=== PATIENT | female | born 2000 | race Caucasian/White ===

== ENCOUNTER → 2020-02-16 | Outpatient (REF) | payer OTHER ==
[2020-02-16 14:07] LABS: BASO % 0.4 % (0.0-1.0); EOS # 0.2 10^3/uL (0.0-0.5); EOS % 1.6 % (0.0-3.0); HEMATOCRIT 47.2 % (36.0-47.0); HEMOGLOBIN 15.4 g/dl (12.0-15.5); LYMPH # 1.9 10^3/uL (1.5-5.0); LYMPH % 17.2 % (24.0-44.0); MEAN CORPUSCULAR HEMOGLOBIN 29.5 pg (27.0-33.0); MEAN CORPUSCULAR HGB CONC 32.6 g/dl (32.0-36.5); MEAN CORPUSCULAR VOLUME 90.4 fl (80.0-96.0); MONO # 0.6 10^3/uL (0.0-0.8); MONO % 5.4 % (0.0-5.0); NEUTROPHILS # 8.1 10^3/uL (1.5-8.5); PLATELET COUNT, AUTOMATED 352 10^3/uL (150-450); RED BLOOD COUNT 5.22 10^6/uL (4.00-5.40); WHITE BLOOD COUNT 10.7 10^3/uL (4.0-10.0)
[2020-02-16 14:18] LABS: BLOOD UREA NITROGEN 13 MG/DL (7-18); CALCIUM LEVEL 9.5 MG/DL (8.5-10.1); CARBON DIOXIDE LEVEL 28 MEQ/L (21-32); CHLORIDE LEVEL 105 MEQ/L (98-107); CREATININE FOR GFR 0.68 MG/DL (0.55-1.30); GLOMERULAR FILTRATION RATE > 60.0 (>60); GLUCOSE, FASTING 84 MG/DL (70-100); POTASSIUM SERUM 4.3 MEQ/L (3.5-5.1); SODIUM LEVEL 138 MEQ/L (136-145)
== END ==
LOC: M SFHCPLAZ 09:20
PROVIDERS: ATTEND Family Medicine
DX: R42 Dizziness and giddiness (principal)

== ENCOUNTER 2020-03-20 10:44 | Emergency (ER) | payer OTHER ==
[~2020-03-20] VITALS: Ht 152.4 cm; Wt 48.3 kg
[2020-03-20 10:45] VITALS: BP 122/79
[2020-03-20] MEDS ORDERED: SETL1TAB PO (10:53)
[2020-03-20] MEDS ORDERED: CYCL-707 PO ×2 (11:27→11:31)
[2020-03-20] MEDS ORDERED: VENTAER INH (11:27)
--- OUTSIDE RECORDS SUMMARY | 2020-03-20 11:35 | CCD ---
Author Author [facility] Organization [facility] Address Unknown Phone Unavailable Support Name Relationship Address Phone EDUARDO [place] [address] ELINA SNOW Next Of Kin [address] [place], [place] [phone] ELINA GONSALEZ Next Of [address] [place] [address] Re-disclosure Warning The records that you are about to access may contain information from federally-assisted alcohol or drug abuse programs. If such information is present, then the following federally mandated warning applies: This information has been disclosed to you from records protected by federal confidentiality rules (42 CFR part 2). The federal rules prohibit you from making any further disclosure of this information unless further disclosure is expressly permitted by the written consent of the person to whom it pertains or as otherwise permitted by 42 CFR part 2. A general authorization for the release of medical or other information is NOT sufficient for this purpose. The Federal rules restrict any use of the information to criminally investigate or prosecute any alcohol or drug abuse patient.The records that you are about to access may contain highly sensitive health information, the redisclosure of which is protected by Article 27-F of the [facility] Public Health law. If you continue you may have access to information: Regarding HIV / AIDS; Provided by facilities licensed or operated by the [facility] Office of Mental Health; or Provided by the [facility] Office for People With Developmental Disabilities. If such information is present, then the following [facility] mandated warning applies: This information has been disclosed to you from confidential records which are protected by state law. State law prohibits you from making any further disclosure of this information without the specific written consent of the person to whom it pertains, or as otherwise permitted by law. Any unauthorized further disclosure in violation of state law may result in a fine or detention sentence or both. A general authorization for the release of medical or other information is NOT sufficient authorization for further disc losure. Insurance Providers Payer name Policy type / Coverage type Policy ID Covered republican ID Covered republican's relationship to parkinson Policy Parkinson Plan Information CHANELLE [id number]
[2020-03-20 12:30] LABS: RSV AMPLIFICATION NEGATIVE (NEGATIVE)
[2020-03-21] MEDS ORDERED: CYCL-707 PO (15:23)
[2020-03-21] MEDS ORDERED: VENTAER INH (15:23)
== END 2020-03-20 11:52 | disposition home or self-care (01) ==
LOC: M ED 10:44
DX: M62.830 Muscle spasm of back (principal); Z20.828 Contact with and (suspected) exposure to other viral communicable diseases; R06.02 Shortness of breath; R50.9 Fever, unspecified; R05 Cough; R51.9 Headache, unspecified; F17.290 Nicotine dependence, other tobacco product, uncomplicated; F43.22 Adjustment disorder with anxiety; F33.9 Major depressive disorder, recurrent, unspecified; Z79.51 Long term (current) use of inhaled steroids; Z79.899 Other long term (current) drug therapy

== ENCOUNTER 2020-03-21 10:23 | Inpatient (IN) | payer OTHER ==
[~2020-03-21] VITALS: Ht 149.9 cm; Wt 49.5 kg
[~2020-03-21 10:23] MED LIST: CYCL-707 PO; SETL1TAB PO; VENTAER INH
--- OUTSIDE RECORDS SUMMARY | 2020-03-21 10:28 | CCD ---
Author Author [facility] Organization [facility] Address Unknown Phone Unavailable Support Name Relationship Address Phone EDUARDO [place] [address] 000 ELINA SNOW Next Of Kin [address] [place], [place] [phone] ELINA GONSALEZ Next Of [address] [place] [address] Re-disclosure Warning The records that you are [...] is protected by Article 27-F of the [facility] Public Health law. If you continue you may have access to information: Regarding HIV / AIDS; Provided by facilities licensed or operated by the [facility] Office of Mental Health; or Provided by the [facility] Office for People With Developmental Disabilities. If such information is present, then the following [facility] mandated warning applies: This information has been [...] law may result in a fine or care home sentence or both. A general authorization for the release of medical or other information is NOT sufficient authorization for further disc losure. Insurance Providers Payer name Policy type / Coverage type Policy ID Covered republican ID Covered republican's relationship to parkinson Policy Parkinson Plan Information CHANELLE [id number] 500 Results ID Date Data Source [id number] 03/20/2020 11:36:00 AM EST [place] Name Value Range Interpretation Code Description Data Zoë rce(s) Supporting Document(s) SARS coronavirus 2 RNA [Presence] in Res piratory specimen by GILA with probe detection NEGATIVE [place] This lab was ordered by [facility] a nd reported by [facility]. Procedure
--- OUTSIDE RECORDS SUMMARY | 2020-03-21 10:57 | CCD ---
Author Author [facility] Organization [facility] Address Unknown Phone Unavailable Support Name Relationship Address Phone EDUARDO [place] [address] 000 ELINA SNOW Next Of Kin [address] [place], [place] [phone] ELINA GONSALEZ Next Of [address] [place] [address] Re-disclosure Warning The records that you are [...] is protected by Article 27-F of the [facility] Public Health law. If you continue you may have access to information: Regarding HIV / AIDS; Provided by facilities licensed or operated by the [facility] Office of Mental Health; or Provided by the [facility] Office for People With Developmental Disabilities. If such information is present, then the following [facility] mandated warning applies: This information has [...] law may result in a fine or senior living sentence or both. A general authorization for the release of medical or other information is NOT sufficient authorization for further disc losure. Insurance Providers Payer name Policy type / Coverage type Policy ID Covered green party ID Covered green party's relationship to parkinson Policy Parkinson Plan Information CHANELLE [id number] 500 Results ID Date Data Source [id number] 03/20/2020 11:36:00 AM EST [place] Name Value Range Interpretation Code Description Data Zoë rce(s) Supporting Document(s) SARS coronavirus 2 RNA [Presence] in Res piratory specimen by GILA with probe detection NEGATIVE [place] This lab was ordered by [facility] a nd reported by [facility]. Procedure
[2020-03-21] MEDS ORDERED: KETOROLAC 30 MG/ML 1ML VIAL IV ONE (12:00)
[2020-03-21] MEDS ORDERED: NS 1,000 ML IV ONE (12:00)
--- NOTE | 2020-03-21 12:11 | REP ---
INDICATION: CP, SOB, pleuritic CP. COMPARISON: No comparison study. TECHNIQUE: Portable upright AP chest radiograph. FINDINGS: There are increased markings in the bases bilaterally left more so than right consistent with bibasilar infiltrates. Heart is not enlarged. No bony abnormality is seen. Nipple jewelry is noted incidentally. IMPRESSION: Bibasilar infiltrates, left greater than right consistent with pneumonia.. <Electronically signed by Jerome Russell > 03/21/20 [id number]
[2020-03-21 12:36] LABS: BASO % 0.2 % (0.0-1.0); HEMATOCRIT 37.6 % (36.0-47.0); HEMOGLOBIN 12.7 g/dl (12.0-15.5); LYMPH # 0.9 10^3/uL (1.5-5.0); LYMPH % 3.9 % (24.0-44.0); MEAN CORPUSCULAR HEMOGLOBIN 29.5 pg (27.0-33.0); MEAN CORPUSCULAR HGB CONC 33.8 g/dl (32.0-36.5); MEAN CORPUSCULAR VOLUME 87.4 fl (80.0-96.0); MONO # 0.3 10^3/uL (0.0-0.8); MONO % 1.5 % (0.0-5.0); NEUTROPHILS # 20.6 10^3/uL (1.5-8.5); NEUTROPHILS % 93.4 % (36.0-66.0); PLATELET COUNT, AUTOMATED 340 10^3/uL (150-450)
[2020-03-21] MEDS ORDERED: LevoFLOXacin 750 MG TABLET PO ONE (13:00)
[2020-03-21] MEDS ORDERED: cefTRIAXone SOD 1 GM in D5W MINI-BAG PLUS 50 ML IV ONE ×2 (13:00→17:00)
[2020-03-21] MEDS ORDERED: NS IV ONE (13:00)
[2020-03-21 13:11] LABS: ALBUMIN 3.1 GM/DL (3.2-5.2); ALT/SGPT 19 U/L (12-78); BILIRUBIN,DIRECT 0.3 MG/DL (0.0-0.2); BLOOD UREA NITROGEN 5 MG/DL (7-18); CARBON DIOXIDE LEVEL 21 MEQ/L (21-32); CHLORIDE LEVEL 100 MEQ/L (98-107); CK-MB VALUE MASS < 1.0 NG/ML (<3.6); CPK CREATINE PHOSPHOKINASE 30 U/L (26-192); GLOMERULAR FILTRATION RATE > 60.0 (>60); GLUCOSE, FASTING 81 MG/DL (70-100); LIPASE 73 U/L (73-393); MB/CK RELATIVE INDEX 3.33 (< OR =4); POTASSIUM SERUM 3.5 MEQ/L (3.5-5.1); SODIUM LEVEL 132 MEQ/L (136-145); TOTAL PROTEIN 6.9 GM/DL (6.4-8.2); TROPONIN I < 0.02 NG/ML (< 0.10)
[2020-03-21] MEDS ORDERED: ISOVUE-370 76% 100ML VIAL As Ordered ONE (14:03)
--- NOTE | 2020-03-21 14:41 | REP ---
INDICATION: CP, SOB, pleuritic CP, elevated dimer, low back pain rad RLE. COMPARISON: Radiograph today. TECHNIQUE: CT angiogram chest performed following the intravenous administration of 100 cc of Isovue 370. Sagittal and coronal reconstruction images are performed. FINDINGS: Lungs: There are diffuse bilateral patchy infiltrates, more so inferiorly bilaterally. Mediastinum: No adenopathy. Pulmonary arteries: No evidence of pulmonary embolism. Maria Dolores: 3 mildly enlarged right hilar lymph nodes are present, the largest 1.4 cm in short axis dimension. A mildly enlarged left inferior hilar lymph node measures 1.3 cm in short axis. Axilla: No adenopathy. Pleura: No effusion. Heart: Not enlarged. Thoracic aorta: No aneurysm or dissection. . Visualized osseous structures: Unremarkable. IMPRESSION: No CT evidence of pulmonary embolism. Diffuse patchy bilateral infiltrates, more so inferiorly bilaterally. Mild bilateral hilar adenopathy. <Electronically signed by Mychal Chadwick > 03/21/20 0613
--- NOTE | 2020-03-21 14:46 | REP ---
INDICATION: cp, sob, pleuritic CP, low back pain radiating to RLE COMPARISON: None. TECHNIQUE: CT Scan of the abdomen and pelvis was performed with intravenous administration of 100 cc of Isovue 370, without oral contrast. FINDINGS: Liver: There is mild hepatomegaly, the length of the liver is approximately 18 cm. There is diffuse patchy low density throughout the liver suggesting diffuse fibrofatty infiltration. Gallbladder: Unremarkable. Spleen: Normal. Adrenals: Normal. Pancreas: Normal. Kidneys: Normal. Small and large bowel: Unremarkable. Free fluid: None. Abdominal aorta: No aneurysm or dissection. Adenopathy: None. Appendix: Not inflamed. Osseous structures: Unremarkable. Pelvis: No mass. IMPRESSION: No acute abnormalities. Mild hepatomegaly with diffuse fibrofatty infiltration. <Electronically signed by Mychal Chadwick > 03/21/20 3705
[2020-03-21] MEDS ORDERED: CYCL-707 PO (15:23)
[2020-03-21] MEDS ORDERED: VENTAER INH (15:23)
[2020-03-21] MEDS ORDERED: ALBUTEROL 90 MCG/ACT 8GM HFA INHALER INH PRN (16:00)
[2020-03-21] MEDS ORDERED: ACETAMINOPHEN TAB 650MG DOSE (2X325MG) PO PRN (16:00)
--- NOTE | 2020-03-21 16:09 | HPEPDOC ---
General Date of Admission Date of Service: Mar 21, 2020 Chief Complaint The patient is a 20-year-old female admitted with a reason for visit of Shortness Of Breath. Source: Patient Timing/Duration: Day(s) Severity: Moderate History of Present Illness Patient's 20 years old female with past history of anxiety, depression, adjustm ent disorder presented to the hospital with increased shortness of breath, fever and intermittent cough. Patient stated that she started coughing around 3 days ago, for past 2 days patient has been having fever around 101 associated with weakness and nonproductive cough. Patient stated that she was exposed to Covid 19 however 2 tests were negative. In ER patient was found to have fever of 100.8, tachycardia with heart rate 130 and leukocytosis of 22. CTA was done and showed No CT evidence of pulmonary embolism. Diffuse patchy bilateral infiltrates, more so inferiorly bilaterally. Mild bilateral hilar adenopathy Home Medications Scheduled Levonorgestrel-Ethin Estradiol (Setlakin 0.15 mg-0.03 mg Tab) 1 Each Tbdspk.3mo, 1 TAB PO DAILY, (Reported) Scheduled PRN Albuterol Sulfate (Ventolin Hfa) 18 Gm Hfa.aer.ad, 2 PUFFS INH QID PRN for SOB/WHEEZING, (Reported) Cyclobenzaprine HCl (Cyclobenzaprine HCl) 10 Mg Tablet, 10 MG PO TID PRN for MUSCLE SPASMS, (Reported) Allergies Coded Allergies: No Known Allergies (Unverified , 03/20/20) Past Medical History Medical History anxiety, depression, adjustment disorder, endometriosis Family History father WPW Social History * Smoker: other (vaping) Alcohol: Denies Drugs: denies A-FIB/CHADSVASC A-FIB History Current/History of A-Fib/PAF?: No Current PO Anticoag Therapy: No Review of Systems Constitutional: Reports: Chills, Fever Eyes: Denies: Pain ENT: Denies: Head Aches Skin: Denies: Rash, Lesions Pulmonary: Reports: Dyspnea, Cough Cardiovascular: Denies: Chest Pain Gastrointestinal: Denies: Nausea Genitourinary: Denies: Dysuria Hematologic: Denies: Bruising Endocrine: Denies: Polydipsia Musculoskeletal: Denies: Neck Pain Neurological: Denies: Weakness Psych: Reports: Mood Normal Physical Examination General Exam: Positive: Alert, Cooperative Eye Exam: Positive: PERRLA ENT Exam: Positive: Atraumatic Neck Exam: Positive: Supple; Negative: JVD Chest Exam: Positive: Diminished Heart Exam: Positive: Tachycardic Telemetry: Positive: Sinus Abdomen Exam: Positive: Normal bowel sounds Extremity Exam: Negative: Clubbing, Cyanosis Skin Exam: Negative: Breakdown Neuro Exam: Positive: Normal Gait, Strength at 5/5 X4 ext Psych Exam: Positive: Mental status NL Vital Signs Vital Signs Date Time Temp Pulse Resp B/P (MAP) Pulse Ox O2 Delivery O2 Flow Rate FiO2 03/21/20 15:17 98.3 135 20 122/80 (94) 94 Room Air Laboratory Data Labs 24H Laboratory Tests 2 03/21/20 12:11: POC Beta HCG, Quantitative < 5.0 03/21/20 12:23: Immature Granulocyte % (Auto) 1.0, Neutrophils (%) (Auto) 93.4H, Lymphocytes (%) (Auto) 3.9L, Monocytes (%) (Auto) 1.5, Eosinophils (%) (Auto) 0.0, Basophils (%) (Auto) 0.2, Neutrophils # (Auto) 20.6H, Lymphocytes # (Auto) 0.9L, Monocytes # ( Auto) 0.3, Eosinophils # (Auto) 0.0, Basophils # (Auto) 0.0, Nucleated Red Blood Cells % (auto) 0.0, D-Dimer, Quantitative 846.45H, Anion Gap 11, Glomerular Filtration Rate > 60.0, Calcium Level 9.0, Total Bilirubin 1.0, Direct Bilirubin 0.3H, Aspartate Amino Transf (AST/SGOT) 20, Alanine Aminotransferase (ALT/SGPT) 19, Alkaline Phosphatase 98, Total Creatine Kinase 30, Creatine Kinase MB < 1.0, Creatine Kinase MB Relative Index 3.33, Troponin I < 0.02, Total Protein 6.9, Albumin 3.1L, Albumin/Globulin Ratio 0.8L, Lipase 73 03/21/20 12:45: Lactic Acid Level 0.8 03/21/20 13:37: Urine Color YELLOW, Urine Appearance HAZY, Urine pH 7.0, Urine Specific [place] 1.008, Urine Protein NEGATIVE, Urine Glucose (UA) NEGATIVE, Urine Ketones 2+H, Urine Blood NEGATIVE, Urine Nitrite NEGATIVE, Urine Bilirubin NEGATIVE, Urine Urobilinogen 0.2, Urine Leukocyte Esterase 1+H, Urine WBC (Auto) 8H, Urine RBC (Auto) 1, Urine Hyaline Casts (Auto) 0, Urine Bacteria (Auto) 3+H, Urine Squamous Epithelial Cells 6, Urine Sperm (Auto) CBC/BMP Laboratory Tests 03/21/20 12:23 Microbiology Microbiology 03/21/20 Urine Culture, Received Pending 03/21/20 Blood Culture, Received Pending 03/21/20 Respiratory Virus Panel (PCR) ([facility]) - Final, Complete Assessment/Plan Patient's 20 years old female with past history of anxiety, depression, adjustment disorder presented to the hospital with increased shortness of breath, fever and intermittent cough. Patient stated that she started coughing around 3 days ago, for past 2 days patient has been having fever around 101 associated with weakness and nonproductive cough. Patient stated that she was exposed to Covid 19 however 2 tests were negative. In ER patient was found to have fever of 100.8, tachycardia with heart rate 130 and leukocytosis of 22. CTA was done and showed No CT evidence of pulmonary embolism. Diffuse patchy bilateral infiltrates, more so inferiorly bilaterally. Mild bilateral hilar adenopathy Problems (1) Sepsis Status: Acute Problem Text: Patient has fever, leukocytosis, tachycardia, dyspnea on admission Secondary to community-acquired pneumonia Blood culture Ceftriaxone, azithromycin IV IV fluid proCalcitonin (2) Pneumonia Status: Acute Problem Text: Community-acquired pneumonia superimposed with previous frequent vaping CTA was done and showed No CT evidence of pulmonary embolism. Diffuse patchy bilateral infiltrates, more so inferiorly bilaterally. Mild bilateral hilar adenopathy Continue antibiotics Incentive spirometry Prednisone 40 mg Plan / VTE VTE Prophylaxis Ordered?: Yes JERO OJ DO Mar 21, 2020 16:09
--- OUTSIDE RECORDS SUMMARY | 2020-03-21 16:32 | CCD ---
Author Author [facility] Organization [facility] Address Unknown Phone Unavailable Support Name Relationship Address Phone EDUARDO [place] [address] 000 ELINA SNOW Next Of Kin [address] [place], [place] [phone] ELINA GONSALEZ Next Of Kin [address] [place] [address] Re-disclosure Warning The records that you are [...] is protected by Article 27-F of the [facility] Public Health law. If you continue you may have access to information: Regarding HIV / AIDS; Provided by facilities licensed or operated by the [facility] Office of Mental Health; or Provided by the [facility] Office for People With Developmental Disabilities. If such information is present, then the following [facility] mandated warning applies: This information has been [...] law may result in a fine or long-term sentence or both. A general authorization for the release of medical or other information is NOT sufficient authorization for further disc losure. Insurance Providers Payer name Policy type / Coverage type Policy ID Covered democrat ID Covered democrat's relationship to parkinson Policy Parkinson Plan Information CHANELLE [id number] Results ID Date Data Source [id number] 03/20/2020 11:36:00 AM EST [place] Name Value Range Interpretation Code Description Data Zoë rce(s) Supporting Document(s) SARS coronavirus 2 RNA [Presence] in Res piratory specimen by GILA with probe detection NEGATIVE [place] This lab was ordered by [facility] a nd reported by [facility]. Procedure
[2020-03-21] MEDS: AZITHROMYCIN INJ 500 MG, VIAL MATE ADAPTER 1 EACH in D5W 250 ML IV SCH (16:33)
[2020-03-21] MEDS: NS 1,000 ML IV SCH ×2 (16:33→18:04)
[2020-03-21] MEDS: predniSONE 20 MG TAB PO SCH (16:34)
[2020-03-21 17:21] VITALS: BP 113/82
--- NOTE | 2020-03-21 19:59 | ECGEPIP ---
[facility] - ED Test Date: 2020-03-21 Pat Name: SHAMEKA GONSALEZ Department: Room: - Gender: Female Call Center Support Consultant: FEROZ : 2000 Requested By: SHAYNA Marie PA-C Order Number: [id number] Reading MD: Marianne Martin Measurements Intervals [place] [facility] Rate: 138 P: 61 TN: 137 QRS: 37 QRSD: 81 T: 9 QT: 280 QTc: 426 Interpretive Statements SINUS TACHYCARDIA ABNORMAL RHYTHM ECG NSTTW abnormalities NO PRIOR Electronically Signed on 03-21-2020 19:58:52 EST by Marianne Martin
[2020-03-21 22:00] VITALS: BP 115/79
[2020-03-22] MEDS: NS 1,000 ML IV SCH ×2 (02:37→11:10)
[2020-03-22 06:00] VITALS: BP 110/74
[2020-03-22 08:05] LABS: HEMATOCRIT 39.4 % (36.0-47.0); HEMOGLOBIN 13.1 g/dl (12.0-15.5); MEAN CORPUSCULAR HEMOGLOBIN 29.5 pg (27.0-33.0); MEAN CORPUSCULAR HGB CONC 33.2 g/dl (32.0-36.5); MEAN CORPUSCULAR VOLUME 88.7 fl (80.0-96.0); PLATELET COUNT, AUTOMATED 422 10^3/uL (150-450); RED BLOOD COUNT 4.44 10^6/uL (4.00-5.40); WHITE BLOOD COUNT 20.7 10^3/uL (4.0-10.0)
[2020-03-22] MEDS: ENOXAPARIN 40MG/0.4ML SYRINGE (J1650 PER 10MG) SC SCH (08:11)
[2020-03-22] MEDS: predniSONE 20 MG TAB PO SCH (08:11)
[2020-03-22 08:21] LABS: ALBUMIN 2.6 GM/DL (3.2-5.2); ALT/SGPT 17 U/L (12-78); BILIRUBIN,TOTAL 0.4 MG/DL (0.2-1.0); BLOOD UREA NITROGEN 6 MG/DL (7-18); CALCIUM LEVEL 9.2 MG/DL (8.5-10.1); CARBON DIOXIDE LEVEL 23 MEQ/L (21-32); CHLORIDE LEVEL 110 MEQ/L (98-107); CREATININE FOR GFR 0.51 MG/DL (0.55-1.30); GLOMERULAR FILTRATION RATE > 60.0 (>60); GLUCOSE, FASTING 97 MG/DL (70-100); MAGNESIUM LEVEL 2.2 MG/DL (1.8-2.4); POTASSIUM SERUM 3.9 MEQ/L (3.5-5.1); SODIUM LEVEL 143 MEQ/L (136-145); TOTAL PROTEIN 6.4 GM/DL (6.4-8.2)
[2020-03-22 13:57] VITALS: BP 111/79
[2020-03-22] MEDS: AZITHROMYCIN INJ 500 MG, VIAL MATE ADAPTER 1 EACH in D5W 250 ML IV SCH (15:03)
[2020-03-22] MEDS: cefTRIAXone SOD 2 GM in D5W MINI-BAG PLUS 50 ML IV SCH (17:52)
[2020-03-22] MEDS ORDERED: NS 1,000 ML IV ONE (18:15)
--- NOTE | 2020-03-22 18:36 | IPNPDOC ---
Text Note Date of Service The patient was seen on 03/22/20. NOTE Subjective: No any acute events overnight. Patient stated that she feels better today Objective: GENERAL APPEARANCE: NAD HEENT: no scleral icterus, no JVD, EOMI CARDIOVASCULAR: Tachycardia Rate 115 LUNGS: Diminished lung sounds bilaterally ABDOMEN: soft & not tender w palpitation MUSCULOSKELETAL: no cyanosis, no swelling INTEGUMENT: no generalized pallor NEUROLOGICAL: cranial nerve function from 2-12 intact intact, follows commands, speech not dysarthric Assessment/Plan Patient's 20 years old female with past history of anxiety, depression, adjustment disorder presented to the hospital with increased shortness of breath, fever and intermittent cough. Patient stated that she started coughing around 3 days ago, for past 2 days patient has been having fever around 101 associated with weakness and nonproductive cough. Patient stated that she was exposed to Covid 19 however 2 tests were negative. In ER patient was found to have fever of 100.8, tachycardia with heart rate 130 and leukocytosis of 22. CTA was done and showed No CT evidence of pulmonary embolism. Diffuse patchy bilateral infiltrates, more so inferiorly bilaterally. Mild bilateral hilar adenopathy Problems (1) Sepsis Patient had fever, leukocytosis, tachycardia, dyspnea on admission Secondary to community-acquired pneumonia Blood culture negative Ceftriaxone, azithromycin IV IV fluid proCalcitonin 0.6 (2) Pneumonia Community-acquired pneumonia superimposed with previous frequent vaping CTA was done and showed No CT evidence of pulmonary embolism. Diffuse patchy bilateral infiltrates, more so inferiorly bilaterally. Mild bilateral hilar adenopathy Continue antibiotics Incentive spirometry Prednisone 40 mg Tachycardia EKG showed sinus tachycardia Most likely secondary to sepsis superimposed with underlying anxiety VS,Tashae, I+O VS, Tashae, I+O Laboratory Tests 03/22/20 07:13 03/22/20 07:14 Vital Signs Date Time Temp Pulse Resp B/P (MAP) Pulse Ox O2 Delivery O2 Flow Rate FiO2 03/22/20 13:57 98.4 122 18 111/79 (90) 98 03/22/20 06:00 Room Air I&O- Last 24 Hours up to 6 AM 03/22/20 06:00 Intake Total 3015 ml Output Total 1400 ml Balance 1615 ml JERO JO DO Mar 22, 2020 18:36
[2020-03-22] MEDS: D5W 1,000 ML IV SCH (21:13)
[2020-03-22 22:00] VITALS: BP 118/82
[2020-03-23] MEDS: D5W 1,000 ML IV SCH ×4 (04:34→23:27)
[2020-03-23 06:00] VITALS: BP 108/62
[2020-03-23 06:42] LABS: BASO % 0.1 % (0.0-1.0); EOS % 0.2 % (0.0-3.0); HEMATOCRIT 35.9 % (36.0-47.0); HEMOGLOBIN 11.8 g/dl (12.0-15.5); LYMPH % 5.9 % (24.0-44.0); MEAN CORPUSCULAR HEMOGLOBIN 28.7 pg (27.0-33.0); MEAN CORPUSCULAR HGB CONC 32.9 g/dl (32.0-36.5); MEAN CORPUSCULAR VOLUME 87.3 fl (80.0-96.0); MONO # 0.2 10^3/uL (0.0-0.8); MONO % 1.3 % (0.0-5.0); NEUTROPHILS # 15.4 10^3/uL (1.5-8.5); NEUTROPHILS % 91.5 % (36.0-66.0); PLATELET COUNT, AUTOMATED 415 10^3/uL (150-450); RED BLOOD COUNT 4.11 10^6/uL (4.00-5.40); WHITE BLOOD COUNT 16.8 10^3/uL (4.0-10.0)
[2020-03-23 07:12] LABS: ALBUMIN 2.5 GM/DL (3.2-5.2); ALT/SGPT 34 U/L (12-78); BILIRUBIN,TOTAL 0.4 MG/DL (0.2-1.0); BLOOD UREA NITROGEN 4 MG/DL (7-18); CALCIUM LEVEL 8.6 MG/DL (8.5-10.1); CARBON DIOXIDE LEVEL 23 MEQ/L (21-32); CHLORIDE LEVEL 105 MEQ/L (98-107); CREATININE FOR GFR 0.61 MG/DL (0.55-1.30); GLOMERULAR FILTRATION RATE > 60.0 (>60); GLUCOSE, FASTING 114 MG/DL (70-100); MAGNESIUM LEVEL 1.5 MG/DL (1.8-2.4); POTASSIUM SERUM 3.3 MEQ/L (3.5-5.1); SODIUM LEVEL 138 MEQ/L (136-145); TOTAL PROTEIN 5.9 GM/DL (6.4-8.2)
[2020-03-23 07:14] VITALS: BP 108/62
[2020-03-23] MEDS ORDERED: METOPROLOL TART 25 MG TABLET PO ONE (07:15)
[2020-03-23] MEDS ORDERED: MAG SULF 1GM/100ML (MAG RUN) 1 GM in IV 1 EA IV ONE (07:30)
[2020-03-23] MEDS ORDERED: KCL 10MEQ/100ML SWI (KRUN) 10 MEQ in IV 1 EA IV SCH (07:30)
[2020-03-23] MEDS ORDERED: NS 1,000 ML IV ONE (07:30)
--- NOTE | 2020-03-23 08:27 | ECGEPIP ---
[facility] Test Date: 2020-03-23 Pat Name: SHAMEKA GONSALEZ Department: Room: [place] [address] Gender: Female Occupational Therapist Aide: NITESH : 2000 Requested By: JERO JO Order Number: [id number] Reading MD: Lucinda Odom Measurements Intervals [place] Rate: 114 P: 62 TX: 141 QRS: 42 QRSD: 89 T: 27 QT: 307 QTc: 424 Interpretive Statements SINUS TACHYCARDIA BORDERLINE LOW VOLTAGE LIMB LEADS// NSSTTABN PROBABLY STABLE C/W 03/21/20 Electronically Signed on 03-23-2020 8:27:25 EST by Lucinda Odom
[2020-03-23] MEDS: ENOXAPARIN 40MG/0.4ML SYRINGE (J1650 PER 10MG) SC SCH (08:33)
[2020-03-23] MEDS: predniSONE 20 MG TAB PO SCH (08:33)
[2020-03-23] MEDS ORDERED: POTASSIUM CHLORIDE 10 MEQ SR TABLET PO ONE ×2 (09:00→12:00)
[2020-03-23 11:04] LABS: BILIRUBIN,DIRECT 0.1 MG/DL (0.0-0.2); CPK CREATINE PHOSPHOKINASE 33 U/L (26-192); FERRITIN 172 NG/ML (8-252); LDH LACTATE DEHYDROGENASE 327 U/L (84-246); TROPONIN I < 0.02 NG/ML (< 0.10)
[2020-03-23 11:28] LABS: INR 1.12; PROTHROMBIN TIME 14.6 SECONDS (12.5-14.3)
[2020-03-23 11:29] LABS: PARTIAL THROMBOPLASTIN TIME 37.9 SECONDS (24.2-38.5)
[2020-03-23 11:32] LABS: D-DIMER QUANT 1698.61 ng/ml (<500)
--- NOTE | 2020-03-23 13:05 | IPNPDOC ---
Text Note Date of Service The patient was seen on 03/23/20. NOTE Subjective: Patient was tachycardic in the morning with heart rate around 150. Patient was febrile with temperature 100.1 Objective: GENERAL APPEARANCE: NAD HEENT: no scleral icterus, no JVD, EOMI CARDIOVASCULAR: Tachycardia Rate 115 LUNGS: Diminished lung sounds bilaterally ABDOMEN: soft & not tender w palpitation MUSCULOSKELETAL: no cyanosis, no swelling INTEGUMENT: no generalized pallor NEUROLOGICAL: cranial nerve function from 2-12 intact intact, follows commands, speech not dysarthric Assessment/Plan Patient's 20 years old female with past history of anxiety, depression, adjustment disorder presented to the hospital with increased shortness of breath, fever and intermittent cough. Patient stated that she started coughing around 3 days ago, for past 2 days patient has been having fever around 101 associated with weakness and nonproductive cough. Patient stated that she was exposed to Covid 19 however 2 tests were negative. In ER patient was found to have fever of 100.8, tachycardia with heart rate 130 and leukocytosis of 22. CTA was done and showed No CT evidence of pulmonary embolism. Diffuse patchy bilateral infiltrates, more so inferiorly bilaterally. Mild bilateral hilar adenopathy Problems (1) Sepsis Patient had fever, leukocytosis, tachycardia, dyspnea on admission Secondary to community-acquired pneumonia Blood culture negative Ceftriaxone, azithromycin IV IV fluid proCalcitonin 0.6 (2) Pneumonia Community-acquired pneumonia superimposed with previous frequent vaping CTA was done and showed No CT evidence of pulmonary embolism. Diffuse patchy bilateral infiltrates, more so inferiorly bilaterally. Mild bilateral hilar adenopathy Continue antibiotics Incentive spirometry Prednisone 40 mg Covid test negative Tachycardia EKG showed sinus tachycardia Most likely secondary to sepsis superimposed with underlying anxiety EKG showed sinus tachycardia Troponin negative Echo Her mom requested cardiology consult. There is family history of WPW in her father. Appreciate/agree with paste up artist apprentice consult VS,Andrea, I+O VS, Andrea, I+O Laboratory Tests 03/23/20 06:22 Vital Signs Date Time Temp Pulse Resp B/P (MAP) Pulse Ox O2 Delivery O2 Flow Rate FiO2 03/23/20 07:52 117 03/23/20 07:16 99.8 03/23/20 07:14 108/62 03/23/20 06:00 19 99 Room Air I&O- Last 24 Hours up to 6 AM 03/23/20 05:59 Intake Total 4025 ml Output Total 1400 ml Balance 2625 ml JERO JO DO Mar 23, 2020 13:05
[2020-03-23 14:00] VITALS: BP 114/73
[2020-03-23] MEDS: AZITHROMYCIN INJ 500 MG, VIAL MATE ADAPTER 1 EACH in D5W 250 ML IV SCH (16:50)
[2020-03-23] MEDS: cefTRIAXone SOD 2 GM in D5W MINI-BAG PLUS 50 ML IV SCH (18:27)
[2020-03-23 22:00] VITALS: BP 118/75
[2020-03-24 06:00] VITALS: BP 110/78
[2020-03-24 06:51] LABS: BASO % 0.2 % (0.0-1.0); EOS # 0.1 10^3/uL (0.0-0.5); EOS % 0.9 % (0.0-3.0); HEMATOCRIT 35.4 % (36.0-47.0); HEMOGLOBIN 11.8 g/dl (12.0-15.5); LYMPH # 1.7 10^3/uL (1.5-5.0); LYMPH % 13.7 % (24.0-44.0); MEAN CORPUSCULAR HEMOGLOBIN 29.2 pg (27.0-33.0); MEAN CORPUSCULAR HGB CONC 33.3 g/dl (32.0-36.5); MEAN CORPUSCULAR VOLUME 87.6 fl (80.0-96.0); MONO # 0.2 10^3/uL (0.0-0.8); MONO % 1.4 % (0.0-5.0); NEUTROPHILS # 10.2 10^3/uL (1.5-8.5); NEUTROPHILS % 83.2 % (36.0-66.0); PLATELET COUNT, AUTOMATED 417 10^3/uL (150-450); RED BLOOD COUNT 4.04 10^6/uL (4.00-5.40); WHITE BLOOD COUNT 12.2 10^3/uL (4.0-10.0)
[2020-03-24 07:26] LABS: ALBUMIN 2.3 GM/DL (3.2-5.2); ALT/SGPT 44 U/L (12-78); BILIRUBIN,TOTAL 0.8 MG/DL (0.2-1.0); BLOOD UREA NITROGEN 4 MG/DL (7-18); CALCIUM LEVEL 8.6 MG/DL (8.5-10.1); CARBON DIOXIDE LEVEL 27 MEQ/L (21-32); CHLORIDE LEVEL 106 MEQ/L (98-107); CREATININE FOR GFR 0.44 MG/DL (0.55-1.30); GLOMERULAR FILTRATION RATE > 60.0 (>60); GLUCOSE, FASTING 97 MG/DL (70-100); POTASSIUM SERUM 3.7 MEQ/L (3.5-5.1); SODIUM LEVEL 139 MEQ/L (136-145); TOTAL PROTEIN 5.8 GM/DL (6.4-8.2)
[2020-03-24] MEDS: predniSONE 20 MG TAB PO SCH (08:00)
[2020-03-24] MEDS: ENOXAPARIN 40MG/0.4ML SYRINGE (J1650 PER 10MG) SC SCH (08:00)
[2020-03-24] MEDS: D5W 1,000 ML IV SCH (08:02)
[2020-03-24] MEDS ORDERED: ENTER DRUG NAME HERE (PATIENT'S OWN MED) PO SCH (09:00)
[2020-03-24] MEDS ORDERED: AZIT500T5 PO (10:58)
[2020-03-24] MEDS ORDERED: PRED20TA PO (10:58)
[2020-03-24] MEDS ORDERED: AUGM875T28 PO (10:58)
--- NOTE | 2020-03-24 17:22 | DS.PDOC ---
Discharge Summary General Date of Admission Mar 21, 2020 at 15:50 Date of Discharge 03/24/20 Discharge Summary PROCEDURES PERFORMED DURING STAY: [None]. ADMITTING DIAGNOSES: Sepsis Pneumonia Tachycardia DISCHARGE DIAGNOSES: Sepsis Pneumonia Tachycardia COMPLICATIONS/CHIEF COMPLAINT: Pneumonia/Sepsis. HISTORY OF PRESENT ILLNESS: Patient's 20 years old female with past history of anxiety, depression, adjustment disorder presented to the hospital with increased shortness of breath, fever and intermittent cough. Patient stated that she started coughing around 3 days ago, for past 2 days patient has been having fever around 101 associated with weakness and nonproductive cough. Patient stated that she was exposed to Covid 19 however 2 tests were negative. In ER patient was found to have fever of 100.8, tachycardia with heart rate 130 and leukocytosis of 22. CTA was done and showed No CT evidence of pulmonary embolism. Diffuse patchy bilateral infiltrates, more so inferiorly bilaterally. Mild bilateral hilar adenopathy HOSPITAL COURSE: During hospital stay following issue addressed (1) Sepsis Patient had fever, leukocytosis, tachycardia, dyspnea on admission Secondary to community-acquired pneumonia Blood culture negative Ceftriaxone, azithromycin IV IV fluid proCalcitonin 0.6 (2) Pneumonia Community-acquired pneumonia superimposed with previous frequent vaping CTA was done and showed No CT evidence of pulmonary embolism. Diffuse patchy bilateral infiltrates, more so inferiorly bilaterally. Mild bilateral hilar adenopathy Continue antibiotics Incentive spirometry Prednisone 40 mg Covid test negative Tachycardia EKG showed sinus tachycardia Most likely secondary to sepsis superimposed with underlying anxiety EKG showed sinus tachycardia Troponin negative Echo pending Her mom requested cardiology consult. There is family history of WPW in her father. personnel adviser consult placed DISCHARGE MEDICATIONS: Please see below. ALLERGIES: Please see below. PHYSICAL EXAMINATION ON DISCHARGE: VITAL SIGNS: Please see below. GENERAL APPEARANCE: NAD HEENT: no scleral icterus, no JVD, EOMI CARDIOVASCULAR: Tachycardia Rate 115 LUNGS: Diminished lung sounds bilaterally ABDOMEN: soft & not tender w palpitation MUSCULOSKELETAL: no cyanosis, no swelling INTEGUMENT: no generalized pallor NEUROLOGICAL: cranial nerve function from 2-12 intact intact, follows commands, speech not dysarthric LABORATORY DATA: Please see below. IMAGING: see above PROGNOSIS: fair ACTIVITY: [As tolerated]. DIET: regular DISPOSITION: 01 Home, Self-Care. ITEMS TO FOLLOWUP ON ON OUTPATIENT: With personnel adviser and PCP DISCHARGE CONDITION: [Stable]. TIME SPENT ON DISCHARGE: Greater than 30 minutes. Vital Signs/I&Os Vital Signs Date Time Temp Pulse Resp B/P (MAP) Pulse Ox O2 Delivery O2 Flow Rate FiO2 03/24/20 06:00 98.0 104 17 110/78 (89) 95 Room Air I&O- Last 24 Hours up to 6 AM 03/24/20 06:00 Intake Total 2660 ml Output Total 2700 ml Balance -40 ml Laboratory Data Labs 24H Laboratory Tests 2 03/24/20 05:51: Immature Granulocyte % (Auto) 0.6, Neutrophils (%) (Auto) 83.2H, Lymphocytes (%) (Auto) 13.7L, Monocytes (%) (Auto) 1.4, Eosinophils (%) (Auto) 0.9, Basophils (%) (Auto) 0.2, Neutrophils # (Auto) 10.2H, Lymphocytes # (Auto) 1.7, Monocytes # (Auto) 0.2, Eosinophils # (Auto) 0.1, Basophils # (Auto) 0.0, Nucleated Red Blood Cells % (auto) 0.0, Anion Gap 6L, Glomerular Filtration Rate > 60.0, Calcium Level 8.6, Magnesium Level 2.0, Total Bilirubin 0.8#, Aspartate Amino Transf (AST/SGOT) 21, Alanine Aminotransferase (ALT/SGPT) 44, Alkaline Phosphatase 65, Total Protein 5.8L, Albumin 2.3L, Albumin/Globulin Ratio 0.7L CBC/BMP Laboratory Tests 03/24/20 05:51 Microbiology Microbiology 03/21/20 Blood Culture - Preliminary, Resulted No Growth after 72 hours. All specime... 03/21/20 Urine Culture - Final, Complete 03/21/20 Blood Culture - Preliminary, Resulted No Growth after 72 hours. All specime... 03/21/20 Respiratory Virus Panel (PCR) ([facility]) - Final, Complete Discharge Medications Scheduled Amoxicillin/Potassium Clav (Augmentin 875-125 Tablet) 1 Each Tablet, 1 TAB PO BID Azithromycin (Azithromycin) 500 Mg Tablet, 1 TAB PO DAILY Levonorgestrel-Ethin Estradiol (Setlakin 0.15 mg-0.03 mg Tab) 1 Each Tbdspk.3mo, 1 TAB PO DAILY, (Reported) Prednisone (Prednisone) 20 Mg Tablet, 40 MG PO DAILY Scheduled PRN Albuterol Sulfate (Ventolin Hfa) 18 Gm Hfa.aer.ad, 2 PUFFS INH QID PRN for SOB/WHEEZING, (Reported) Cyclobenzaprine HCl (Cyclobenzaprine HCl) 10 Mg Tablet, 10 MG PO TID PRN for MUSCLE SPASMS, (Reported) Allergies Coded Allergies: No Known Allergies (Unverified , 03/20/20) JERO JO DO Mar 24, 2020 17:22
--- NOTE | 2020-03-25 11:23 | ECHO ---
DATE OF PROCEDURE: 03/23/2020 Age: 20 Gender: Female REFERRING PHYSICIAN: Osmany Tripp DO PATIENT LOCATION: Room 4225. REASON FOR STUDY: Tachycardia. 2D MEASUREMENTS: IVS 0.9 cm LV 4.5 cm LVPW 0.8 cm LA 3.3 cm Aorta 2.2 cm RV 2.7 cm IVC 1.4 cm DOPPLER MEASUREMENT Peak velocity across the aortic valve 1.4 m/s Peak velocity across the LVOT 1.04 m/s Mitral E 0.8 Mitral A 0.7 with a ratio of 1.1 Maximum tricuspid valve velocity 2.3 m/s 2D COMMENTS: 1. Normal left ventricular size, wall thickness, and normal global left ventricular systolic function. The estimated left ventricular systolic ejection fraction is 60% to 65%. 2. Normal left atrium. Normal right atrium and right ventricle. 3. The atrial septum appeared to be normal without evidence of defect or shunt. 4. Normal aortic root. 5. A trace pericardial effusion was noted, no evidence of cardiac tamponade. 6. The aortic valve, mitral valve, tricuspid valve, and pulmonic valve appeared to be normal. The proximal pulmonary artery branches were not well visualized. 7. The inferior vena cava was normal in size, central venous pressure is most likely normal. DOPPLER: It detects trace mitral regurgitation, trace tricuspid regurgitation, and trace pulmonic regurgitation. The calculated pulmonary artery systolic pressure is about 30 mmHg. Assessment of the left ventricular diastolic function was normal. IMPRESSION: 1. Normal global left ventricular systolic and diastolic function. 2. Trace mitral regurgitation. 3. Trace tricuspid regurgitation with probably mild pulmonary hypertension. 4. Trace pulmonic regurgitation. 5. Trace pericardial effusion, no evidence of cardiac tamponade. [facility]
== END 2020-03-24 13:16 | disposition home or self-care (01) | DRG 720 ==
LOC: M ED 10:23 → M ED INP 15:50 → M MSPAV 17:06
PROVIDERS: ADMIT Internal Medicine; ATTEND Internal Medicine
DX: A41.9 Sepsis, unspecified organism (principal); J18.9 Pneumonia, unspecified organism; R00.0 Tachycardia, unspecified; F41.9 Anxiety disorder, unspecified; F32.9 Major depressive disorder, single episode, unspecified; Z79.899 Other long term (current) drug therapy; F17.290 Nicotine dependence, other tobacco product, uncomplicated

== ENCOUNTER → 2021-08-02 | Outpatient (CLI) | payer OTHER ==
[~2021-08-02] MED LIST changes: +AUGM875T28 PO; +AZIT500T5 PO; +PRED20TA PO
== END ==
LOC: M PLAIMG 09:44
PROVIDERS: ATTEND Student in an Organized Health Care Education/Training Program
DX: M54.2 Cervicalgia (principal)

== ENCOUNTER → 2021-08-11 | Outpatient (REF) | payer OTHER | LOC: M SFHCPLAZ 13:54 | PROVIDERS: ATTEND Family Medicine | DX: Z13.29 Encounter for screening for other suspected endocrine disorder (principal) ==

== ENCOUNTER → 2021-08-15 | Outpatient (CLI) | payer OTHER ==
[2021-08-15 14:34] LABS: THYROID PEROXIDASE ANTIBODY 34.3 U/ML (<60.0); THYROID STIMULATING HORMONE 1.02 uIU/ML (0.358-3.740)
== END ==
LOC: M PLALAB 10:58
PROVIDERS: ATTEND Student in an Organized Health Care Education/Training Program
DX: Z13.29 Encounter for screening for other suspected endocrine disorder (principal)